=== PATIENT | male | born 1995 | race Two or more races ===

== ENCOUNTER 2018-07-26 19:44 | Emergency (ER) | payer OTHER ==
[~2018-07-26] VITALS: Ht 175.3 cm; Wt 69.6 kg
[2018-07-26] MEDS ORDERED: LORazepam 1MG TABLET PO ONE (20:30)
[2018-07-26] MEDS ORDERED: LORazepam 1MG TABLET ONE (20:31)
[2018-07-26 20:39] LABS: BASOPHILS # (AUTO) 0.04 x10^3/uL (0-0.1); BASOPHILS % (AUTO) 1 % (0-1); EOSINOPHILS # (AUTO) 0.09 x10^3/uL (0-0.4); EOSINOPHILS % (AUTO) 1 % (1-7); LYMPHOCYTES # (AUTO) 2.37 x10^3/uL (1-3.4); LYMPHOCYTES % (AUTO) 36 % (22-44); MD NO; MEAN CORPUSCULAR HEMOGLOBIN 30.7 pg (27.5-34.5); MEAN CORPUSCULAR HGB CONC 34.1 g/dL (33.2-36.2); MEAN CORPUSCULAR VOLUME 90.1 fL (81-97); MEAN PLATELET VOLUME 7.8 fL (7.4-10.4); MONOCYTES # (AUTO) 0.46 x10^3/uL (0.2-0.8); MONOCYTES % (AUTO) 7 % (2-9); NEUTROPHILS # (AUTO) 3.58 x10^3/uL (1.8-6.8); NEUTROPHILS % (AUTO) 55 % (42-75); PLATELET COUNT 243 x10^3/uL (130-400); RED BLOOD COUNT 4.74 x10^6/uL (4.38-5.82); RED CELL DISTRIBUTION WIDTH 13.1 % (9.4-14.8)
[2018-07-26] MEDS ORDERED: RISP0.2518 PO (20:45)
[2018-07-26 20:52] LABS: ALANINE AMINOTRANSFERASE 31 U/L (12-78); ALBUMIN 4.4 g/dL (3.4-5.0); ANION GAP 8 mmol/L (5-15); CALCIUM 8.2 mg/dL (8.5-10.1); CHLORIDE 106 mmol/L (98-107); CREATININE 0.93 mg/dL (0.7-1.3)
[2018-07-26 20:54] LABS: ALKALINE PHOSPHATASE 94 U/L (45-117); BILIRUBIN,TOTAL 0.3 mg/dL (0.2-1.0); TOTAL PROTEIN 7.6 g/dL (6.4-8.2)
[2018-07-26 20:56] LABS: TROPONIN I < 0.015 ng/mL (0.000-0.045)
[2018-07-26] MEDS ORDERED: DIPHENHYDRAMINE 25 MG CAPSULE ONE (21:11)
[2018-07-26] MEDS ORDERED: DIPHENHYDRAMINE 25 MG CAPSULE PO ONE (21:30)
[2018-07-26 21:43] LABS: ACETAMINOPHEN < 2 mcg/mL (10-30); SALICYLATE LEVEL < 1.7 mg/dL (2.8-20.0)
[2018-07-26 22:57] LABS: AMPHETAMINE SCREEN, URINE Negative (Negative); BARBITURATE SCREEN, URINE Negative (Negative); BENZODIAZEPINE SCREEN, URINE Negative (Negative); CANNABINOID SCREEN, URINE Negative (Negative); COCAINE SCREEN, URINE Negative (Negative); METHADONE SCREEN, URINE Negative (Negative); OPIATE SCREEN, URINE Negative (Negative)
[2018-07-26 23:25] VITALS: BP 101/45
== END 2018-07-26 23:31 | disposition home or self-care (01) ==
LOC: ED 23:27
DX: F23 Brief psychotic disorder (principal); F20.0 Paranoid schizophrenia; F41.1 Generalized anxiety disorder; R06.4 Hyperventilation
CPT/HCPCS: 36415; 71045; 80053; 80307; 80329; 84484; 85025; 93005; 99285; Q0163; G0480

== ENCOUNTER 2019-09-02 14:00 | Emergency (ER) | payer SELFPAY ==
[~2019-09-02] VITALS: Ht 170.2 cm; Wt 85.1 kg
[~2019-09-02 14:00] MED LIST: RISP0.2518 PO
[2019-09-02 14:04] VITALS: BP 107/58
--- NOTE | 2019-09-02 15:21 | NUR ---
IN ROOM TO DISCHARGE PT. GOWN ON FLOOR AND PT BELONGINGS GONE. CHECKED THE NEAR BY RESTROOMS AND HALLWAYS. NO PT FOUND
== END 2019-09-02 15:24 | disposition left against medical advice (07) ==
LOC: ED 15:18
DX: R23.8 Other skin changes (principal)
CPT/HCPCS: 99281